=== PATIENT | female | born 1985 | race Caucasian/White ===

== ENCOUNTER 2020-07-15 10:07 | Outpatient (CLI) | payer OTHER ==
--- NOTE | 2020-07-17 09:30 | MRI Report ---
PROCEDURE: Lumbar Spine W/O INDICATIONS: LUMBAR RADICULOPATHY TECHNIQUE: Noncontrast sagittal T1 spin echo and T2 fast echo, sagittal STIR, axial T1 and T2 fast spin echo thr ough the lumbar spine. In cases with scoliosis, additional coronal T2 fast spin echo may be performe d. COMPARISON: None. FINDINGS: Image quality: Excellent. Alignment and Curvature: There is normal bony alignment. Bone Marrow: Marrow is of normal overall signal. No acute vertebral body compression fractures. Spinal Cord: Conus medullaris terminates at the L1 level. Visualized cord demonstrates normal signa l and size. Regional Soft Tissues: No paravertebral masses. T12-L1: No spinal canal or neural foraminal stenosis. L1-L2: No spinal canal or neural foraminal stenosis. L2-L3: No spinal canal or neural foraminal stenosis. L3-L4: Diffuse disc bulge flattens the ventral thecal sac without mass effect upon the traversing L4 nerve roots. Foraminal components of the disc bulge contribute to mild bilateral neural foraminal bridger nosis. L4-L5: Disc desiccation and disc height loss. Annular fissure of the disc posteriorly (series 7 jori ge 13 and series 11 image 36). Diffuse disc bulge with a superimposed broad-based posterior disc prot rusion with disc material flattening and indenting the ventral thecal sac. There is mild displacement of the descending L5 nerve roots within both subarticular zones. Foraminal components of the disc bu lge combined with facet hypertrophy to produce mild bilateral neural foraminal stenosis. L5-S1: Diffuse disc bulge and a superimposed extrusion in the left paracentral, central, right para central, and subarticular zones. There is suspected impingement of the right S1 nerve roots within th e right subarticular zone. Lesser but still potentially significant displacement of the left S1 nerve root within the left subarticular zone. Foraminal components of the disc bulge contribute to mild le ft neural foraminal stenosis. IMPRESSION: Degenerative changes in the lower lumbar spine, most pronounced at L5-S1 where there is a disc extrus ion which likely impinges upon the right S1 nerve roots, potentially on the left S1 nerve roots as we ll. Reviewed by: Dominic Modi MD on 07/17/2020 9:28 AM PST Approved by: Dominic Modi MD on 07/17/2020 9:28 AM PST Station ID: [id number]
== END 2020-07-15 10:08 | disposition home or self-care (01) ==
LOC: DI 10:07
PROVIDERS: ATTEND Student in an Organized Health Care Education/Training Program
DX: M48.061 Spinal stenosis, lumbar region without neurogenic claudication (principal); M51.26 Other intervertebral disc displacement, lumbar region; M47.816 Spondylosis without myelopathy or radiculopathy, lumbar region; M51.27 Other intervertebral disc displacement, lumbosacral region; M48.07 Spinal stenosis, lumbosacral region
CPT/HCPCS: 72148